=== PATIENT | female | born 1985 | race Caucasian/White ===

== ENCOUNTER 2016-03-28 12:40 | Emergency (ER) | payer OTHER ==
[~2016-03-28] VITALS: Ht 180.3 cm; Wt 89.5 kg
[2016-03-28 13:01] VITALS: BP 119/71
[2016-03-28 13:42] LABS: Basophils # (auto) 0 uL; Basophils % (auto) 0.5 % (0.0-2.0); Eosinophils # (auto) 0.2 uL; Eosinophils % (auto) 2.1 % (0.0-7.0); Hematocrit 40.7 % (36.0-46.0); Hemoglobin 13.5 g/dL (12.2-16.2); Lymphocytes # (auto) 1.8 uL; Lymphocytes % (auto) 17.1 % (10.0-50.0); Mean Corpuscular Hemoglobin 29.6 pg (28.0-32.0); Mean Corpuscular Hgb Conc. 33.1 g/dL (32.0-36.0); Mean Corpuscular Volume 89.3 fL (80.0-100.0); Mean Platelet Volume 7.5 fL (7.4-10.4); Monocytes # (auto) 0.6 uL; Monocytes % (auto) 5.7 % (0.0-12.0); Neutrophils # (auto) 7.6 uL; Neutrophils % (auto) 74.6 % (37.0-80.0); Platelet Count (auto) 273 10^3/uL (140-450); Red Cell Distribution Width 12.7 % (11.6-16.0); White Blood Cell 10.2 10^3/uL (4.4-10.8)
[2016-03-28 14:03] LABS: Albumin 4.2 g/dL (3.4-5.0); BUN/Creatinine Ratio 14.4; Bilirubin, Total 0.9 mg/dL (0.2-1.0); Calcium 9.4 mg/dL (8.5-10.1); Magnesium 2.3 mg/dL (1.6-2.6); Total Protein 7.7 g/dL (6.4-8.2)
== END 2016-03-28 21:30 | disposition left against medical advice (07) ==
LOC: ER 12:49
DX: R07.89 Other chest pain (principal); Z53.21 Procedure and treatment not carried out due to patient leaving prior to being seen by health care provider
CPT/HCPCS: 36415; 71020; 80053; 83735; 84484; 85025; 85049; 93005

== ENCOUNTER 2017-08-29 04:41 | Emergency (ER) | payer OTHER ==
[~2017-08-29] VITALS: Ht 180.3 cm; Wt 77.1 kg
[2017-08-29 08:41] LABS: Basophils # (auto) 0 uL; Basophils % (auto) 0.5 % (0.0-2.0); Eosinophils # (auto) 0.1 uL; Eosinophils % (auto) 1.7 % (0.0-7.0); Hematocrit 44.4 % (36.0-46.0); Hemoglobin 14.9 g/dL (12.2-16.2); Lymphocytes # (auto) 2.1 uL; Lymphocytes % (auto) 27.5 % (10.0-50.0); Mean Corpuscular Hemoglobin 30.5 pg (28.0-32.0); Mean Corpuscular Hgb Conc. 33.5 g/dL (32.0-36.0); Monocytes # (auto) 0.6 uL; Monocytes % (auto) 8.1 % (0.0-12.0); Neutrophils # (auto) 4.8 uL; Neutrophils % (auto) 62.2 % (37.0-80.0); Platelet Count (auto) 248 10^3/uL (140-450); Red Blood Cells 4.88 10^6/uL (4.0-5.20); Red Cell Distribution Width 12.8 % (11.8-14.3); White Blood Cell 7.7 10^3/uL (4.4-10.8)
[2017-08-29 08:48] LABS: Potassium 4.3 mmol/L (3.5-5.1)
[2017-08-29 08:53] LABS: Albumin 4.5 g/dL (3.4-5.0); BUN/Creatinine Ratio 12.7; Calcium 8.9 mg/dL (8.5-10.1)
[2017-08-29 09:05] LABS: Bilirubin, Total 0.9 mg/dL (0.2-1.0); Total Protein 8.6 g/dL (6.4-8.2)
[2017-08-29 09:27] VITALS: BP 142/78
== END 2017-08-29 09:36 | disposition home or self-care (01) ==
LOC: EDBD 04:41 → ER 04:41
DX: S16.1XXA Strain of muscle, fascia and tendon at neck level, initial encounter (principal); S09.90XA Unspecified injury of head, initial encounter; F17.210 Nicotine dependence, cigarettes, uncomplicated; F12.10 Cannabis abuse, uncomplicated; W01.0XXA Fall on same level from slipping, tripping and stumbling without subsequent striking against object, initial encounter; Y93.89 Activity, other specified; Y99.8 Other external cause status; Y92.89 Other specified places as the place of occurrence of the external cause
CPT/HCPCS: 36415; 70450; 70486; 72125; 80053; 80320; 85025

== ENCOUNTER 2020-08-09 11:17 | Emergency (ER) | payer OTHER ==
[~2020-08-09] VITALS: Ht 180.3 cm; Wt 99.8 kg
[2020-08-09 13:45] VITALS: BP 125/73
== END 2020-08-09 14:25 | disposition home or self-care (01) ==
LOC: ER 11:17
DX: S62.614A Displaced fracture of proximal phalanx of right ring finger, initial encounter for closed fracture (principal); S62.646A Nondisplaced fracture of proximal phalanx of right little finger, initial encounter for closed fracture; F17.210 Nicotine dependence, cigarettes, uncomplicated; X50.1XXA Overexertion from prolonged static or awkward postures, initial encounter; Y93.89 Activity, other specified; Y92.89 Other specified places as the place of occurrence of the external cause; Y99.8 Other external cause status
CPT/HCPCS: 29125; 73130

== ENCOUNTER 2021-10-10 15:09 | Emergency (ER) | payer MEDICAID, OTHER ==
[~2021-10-10] VITALS: Ht 180.3 cm; Wt 105.0 kg
[2021-10-10 16:46] LABS: Urine Bacteria FEW /hpf (None Seen); Urine Blood 1+ /uL (Negative); Urine Mucus FEW (None Seen); Urine Specific Gravity 1.035 (1.001-1.035); Urine WBC 18 /hpf (0 - 5)
[2021-10-10 16:54] LABS: Albumin 4.3 g/dL (3.4-5.0); Calcium 9.6 mg/dL (8.5-10.1)
[2021-10-10 16:57] LABS: BUN/Creatinine Ratio 7.5; Bilirubin, Total 1.6 mg/dL (0.2-1.0); Total Protein 8.3 g/dL (6.4-8.2)
[2021-10-10 17:02] LABS: Basophils # (auto) 0.1 10 ^3/uL (0-0.2); Basophils % (auto) 0.5 % (0.0-2.0); Eosinophils # (auto) 0 10 ^3/uL (0-0.8); Hematocrit 44.6 % (36.0-46.0); Hemoglobin 14.3 g/dL (12.2-16.2); Lymphocytes # (auto) 1.5 10 ^3/uL (0.4-5.4); Lymphocytes % (auto) 8.3 % (10.0-50.0); Mean Corpuscular Hemoglobin 29.3 pg (28.0-32.0); Mean Corpuscular Hgb Conc. 32.1 g/dL (32.0-36.0); Mean Corpuscular Volume 91.4 fL (80.0-100.0); Monocytes # (auto) 1.4 10 ^3/uL (0-1.3); Monocytes % (auto) 8.2 % (0.0-12.0); Neutrophils # (auto) 14.6 10 ^3/uL (1.6-8.6); Red Blood Cells 4.88 10^6/uL (4.0-5.20); Red Cell Distribution Width 13.5 % (11.8-14.3); White Blood Cell 17.6 10^3/uL (4.4-10.8)
[2021-10-10 17:07] LABS: Potassium 2.7 mmol/L (3.5-5.1)
[2021-10-10] MEDS ORDERED: ACETAMINOPHEN 325 MG TAB PO ONE (17:15)
[2021-10-10] MEDS ORDERED: ONDANSETRON HCL 4 MG/2 ML VIAL IV ONE ×2 (17:15→18:45)
[2021-10-10] MEDS ORDERED: LOPERAMIDE HCL 2 MG CAP/TAB PO ONE (17:45)
[2021-10-10] MEDS ORDERED: SODIUM CHLORIDE 0.9% 1,000 ML IV ONE (17:45)
[2021-10-10] MEDS ORDERED: POTASSIUM CHL 20 Meq TABLET PO ONE (18:30)
[2021-10-10] MEDS ORDERED: POTASSIUM CHL 20MEQ/100ML 100 ML IV ONE (18:45)
[2021-10-10] MEDS ORDERED: ONDA-144 PO (20:16)
[2021-10-10 22:03] VITALS: BP 114/80
== END 2021-10-10 22:05 | disposition home or self-care (01) ==
LOC: ER 15:09
DX: R11.2 Nausea with vomiting, unspecified (principal); R19.7 Diarrhea, unspecified; F17.210 Nicotine dependence, cigarettes, uncomplicated; R10.2 Pelvic and perineal pain; Z20.822 Contact with and (suspected) exposure to COVID-19
CPT/HCPCS: 36415; 71045; 80053; 81001; 84443; 84484; 84702; 85025; 87426; 93005; 96361; 96374; 96376; 99285; J2405; J3480; J7030

== ENCOUNTER 2021-10-12 08:19 | Inpatient (IN) | payer MEDICAID ==
[~2021-10-12] VITALS: Ht 180.3 cm; Wt 102.7 kg
[~2021-10-12 08:19] MED LIST: ONDA-144 PO
[2021-10-12] MEDS ORDERED: cefTRIAXone 1GM/50ML D5W 50 ML IV ONE (08:45)
[2021-10-12 09:37] LABS: Basophils # (auto) 0.1 10 ^3/uL (0-0.2); Basophils % (auto) 0.6 % (0.0-2.0); Eosinophils # (auto) 0 10 ^3/uL (0-0.8); Eosinophils % (auto) 0.1 % (0.0-7.0); Hematocrit 44.3 % (36.0-46.0); Hemoglobin 14.8 g/dL (12.2-16.2); Lymphocytes # (auto) 2.1 10 ^3/uL (0.4-5.4); Lymphocytes % (auto) 15.7 % (10.0-50.0); Mean Corpuscular Hemoglobin 30.1 pg (28.0-32.0); Mean Corpuscular Hgb Conc. 33.3 g/dL (32.0-36.0); Mean Corpuscular Volume 90.4 fL (80.0-100.0); Monocytes # (auto) 1.2 10 ^3/uL (0-1.3); Monocytes % (auto) 8.7 % (0.0-12.0); Neutrophils # (auto) 10.2 10 ^3/uL (1.6-8.6); Neutrophils % (auto) 74.9 % (37.0-80.0); Nucleated Red Blood Cells % 0.1 %; Red Cell Distribution Width 13.4 % (11.8-14.3); White Blood Cell 13.6 10^3/uL (4.4-10.8)
[2021-10-12 09:48] LABS: Albumin 4.4 g/dL (3.4-5.0); Calcium 9.6 mg/dL (8.5-10.1)
[2021-10-12 09:51] LABS: BUN/Creatinine Ratio 9.6; Bilirubin, Total 1.7 mg/dL (0.2-1.0); Total Protein 8.6 g/dL (6.4-8.2)
[2021-10-12 09:53] LABS: Potassium 2.8 mmol/L (3.5-5.1)
[2021-10-12] MEDS ORDERED: SODIUM CHLORIDE 0.9% 1,000 ML IV ONE ×2 (10:00)
[2021-10-12] MEDS ORDERED: ONDANSETRON HCL 4 MG/2 ML VIAL IV ONE (10:45)
[2021-10-12] MEDS: POTASSIUM CHL 20MEQ/100ML 100 ML IV SCH ×2 (14:16→15:52)
[2021-10-12] MEDS ORDERED: ONDANSETRON HCL 4 MG/2 ML VIAL ONE (15:14)
[2021-10-12] MEDS: ONDANSETRON HCL 4 MG/2 ML VIAL IV PRN (15:23)
[2021-10-12] MEDS ORDERED: PANTOPRAZOLE 40 MG/10 ML VIAL INJ IV ONE ×2 (16:00→16:30)
[2021-10-12] MEDS ORDERED: ONDANSETRON HCL 4 MG/2 ML VIAL IV PRN (16:00)
[2021-10-12] MEDS: SODIUM CHLORIDE 0.9% 1,000 ML IV SCH ×2 (16:32→23:41)
[2021-10-12 22:00] VITALS: BP 145/82
[2021-10-12 23:17] LABS: BUN/Creatinine Ratio 11.6; Calcium 8.2 mg/dL (8.5-10.1)
[2021-10-12 23:21] LABS: Potassium 2.9 mmol/L (3.5-5.1)
[2021-10-13 05:46] VITALS: BP 130/84
[2021-10-13 05:48] LABS: Basophils # (auto) 0.1 10 ^3/uL (0-0.2); Basophils % (auto) 0.7 % (0.0-2.0); Eosinophils # (auto) 0.1 10 ^3/uL (0-0.8); Eosinophils % (auto) 1.2 % (0.0-7.0); Hematocrit 37.7 % (36.0-46.0); Hemoglobin 12.4 g/dL (12.2-16.2); Lymphocytes # (auto) 2.2 10 ^3/uL (0.4-5.4); Lymphocytes % (auto) 23.2 % (10.0-50.0); Mean Corpuscular Hemoglobin 29.7 pg (28.0-32.0); Mean Corpuscular Hgb Conc. 32.9 g/dL (32.0-36.0); Mean Corpuscular Volume 90.1 fL (80.0-100.0); Monocytes # (auto) 0.9 10 ^3/uL (0-1.3); Monocytes % (auto) 9.3 % (0.0-12.0); Neutrophils # (auto) 6.2 10 ^3/uL (1.6-8.6); Neutrophils % (auto) 65.6 % (37.0-80.0); Red Blood Cells 4.19 10^6/uL (4.0-5.20); Red Cell Distribution Width 13.3 % (11.8-14.3); White Blood Cell 9.4 10^3/uL (4.4-10.8)
[2021-10-13 06:05] LABS: BUN/Creatinine Ratio 11.1
[2021-10-13 06:06] LABS: Albumin 3.3 g/dL (3.4-5.0)
[2021-10-13 06:08] LABS: Bilirubin, Total 1.4 mg/dL (0.2-1.0); Total Protein 6.4 g/dL (6.4-8.2)
[2021-10-13] MEDS: SODIUM CHLORIDE 0.9% 1,000 ML IV SCH ×2 (06:27→13:08)
[2021-10-13] MEDS ORDERED: SODIUM CHLORIDE LOCK 10 ML ONE (08:51)
[2021-10-13] MEDS ORDERED: LIDOCAINE VISCOUS 2% 15ML UD ONE (08:51)
[2021-10-13] MEDS ORDERED: diphenhdrAMINE HCL 50 MG/1 ML VL ONE (08:52)
[2021-10-13] MEDS: cefTRIAXone 1GM/50ML D5W 50 ML IV SCH (08:59)
[2021-10-13] MEDS: ENOXAPARIN SOD 40 MG/0.4 ML SYRINGE SC SCH (08:59)
[2021-10-13] MEDS: PANTOPRAZOLE 40 MG/10 ML VIAL INJ IV SCH (08:59)
[2021-10-13 09:00] VITALS: BP 151/92
[2021-10-13 10:01] LABS: Hepatitis B Surface Antibody Negative (Negative)
[2021-10-13 10:35] LABS: Hepatitis A Total Antibody Positive (Negative)
[2021-10-13 10:36] LABS: INR 1.02 (0.9-1.15)
[2021-10-13 13:00] VITALS: BP 147/89
[2021-10-13 13:08] LABS: Hepatitis A Ab IgM Negative; Hepatitis B Core IgM Negative
[2021-10-13 13:09] LABS: Hepatitis C Antibody Negative (Negative)
[2021-10-13] MEDS: MIDAZOLAM HCL 5 MG/ML-1ML VIAL ONE ×3 (15:26→15:32)
[2021-10-13] MEDS: fentaNYL CITRATE 100 MCG/2 ML VL ONE ×2 (15:26→15:29)
[2021-10-13 17:00] VITALS: BP 142/67
[2021-10-13] MEDS: SUCRALFATE 1 GM/10 ML ORAL SUSP PO SCH ×2 (17:38→21:15)
[2021-10-13] MEDS: POTASSIUM EFFERVESENT TAB 25 MEQ PO SCH (21:15)
[2021-10-13] MEDS: MAGNESIUM OXIDE 400 MG TAB PO SCH (21:15)
[2021-10-13 22:00] VITALS: BP 123/72
[2021-10-13] MEDS: ONDANSETRON HCL 4 MG/2 ML VIAL IV PRN (22:28)
[2021-10-14 05:48] VITALS: BP 122/68
[2021-10-14] MEDS: SUCRALFATE 1 GM/10 ML ORAL SUSP PO SCH ×4 (06:06→22:04)
[2021-10-14] MEDS: ONDANSETRON HCL 4 MG/2 ML VIAL IV PRN (06:06)
[2021-10-14] MEDS ORDERED: OXCA150T61 PO (07:18)
[2021-10-14] MEDS ORDERED: CLON0.2T PO (07:18)
[2021-10-14] MEDS ORDERED: ARIP10TA29 PO (07:18)
[2021-10-14] MEDS ORDERED: FLUO20CA90 PO (07:18)
[2021-10-14] MEDS ORDERED: HYDR50CA2 PO (07:18)
[2021-10-14] MEDS ORDERED: PANT40TA2 PO ×2 (07:20→10:22)
[2021-10-14] MEDS ORDERED: SUCR1TAB22 PO ×2 (07:20→10:22)
[2021-10-14] MEDS: MAGNESIUM OXIDE 400 MG TAB PO SCH (08:56)
[2021-10-14] MEDS: POTASSIUM EFFERVESENT TAB 25 MEQ PO SCH (08:56)
[2021-10-14 09:00] VITALS: BP 112/54
[2021-10-14] MEDS: ENOXAPARIN SOD 40 MG/0.4 ML SYRINGE SC SCH (09:05)
[2021-10-14] MEDS: cefTRIAXone 1GM/50ML D5W 50 ML IV SCH (09:05)
[2021-10-14] MEDS: PANTOPRAZOLE 40 MG/10 ML VIAL INJ IV SCH ×2 (09:05→22:04)
[2021-10-14] MEDS ORDERED: POTASSIUM CHL 20MEQ/100ML 100 ML IV ONE (10:00)
[2021-10-14] MEDS: METOCLOPRAMIDE HCL 5MG/ml INJ 2ml VIAL IV SCH ×3 (11:26→23:51)
[2021-10-14 13:00] VITALS: BP 132/79
[2021-10-14 16:34] VITALS: BP 144/92
[2021-10-14 21:29] LABS: Urine Bacteria NONE SEEN /hpf (None Seen); Urine Blood Negative /uL (Negative); Urine Specific Gravity 1.002 (1.001-1.035); Urine WBC <1 /hpf (0 - 5)
[2021-10-14 21:46] LABS: Alcohol, Urine < 3.0 mg/dL (0-10); Amphetamine Screen, Urine NEGATIVE (NEGATIVE); Barbiturate Scree,Urine NEGATIVE (NEGATIVE); Benzodiazephine Screen, Urine POSITIVE (NEGATIVE); Cannabinoid Screen, Urine POSITIVE (NEGATIVE); Cocaine Screen, Urine NEGATIVE (NEGATIVE); Opiate Scree,Urine NEGATIVE (NEGATIVE); Phencyclidine Screen, Urine NEGATIVE (NEGATIVE)
[2021-10-14 21:52] VITALS: BP 137/91
[2021-10-15 05:00] VITALS: BP 134/74
[2021-10-15] MEDS: SUCRALFATE 1 GM/10 ML ORAL SUSP PO SCH ×3 (06:13→17:00)
[2021-10-15] MEDS: METOCLOPRAMIDE HCL 5MG/ml INJ 2ml VIAL IV SCH ×2 (06:13→11:30)
[2021-10-15 06:22] LABS: Magnesium 2.8 mg/dL (1.6-2.6); Potassium 3.7 mmol/L (3.5-5.1)
[2021-10-15 06:23] LABS: BUN/Creatinine Ratio 6.7
[2021-10-15 09:00] VITALS: BP 148/84
[2021-10-15] MEDS: PANTOPRAZOLE 40 MG/10 ML VIAL INJ IV SCH (09:58)
[2021-10-15] MEDS: ENOXAPARIN SOD 40 MG/0.4 ML SYRINGE SC SCH (09:58)
[2021-10-15 13:00] VITALS: BP_SYST 134; BP_SYST 141; BP_DIAS 74; BP_DIAS 94
[2021-10-15 16:39] VITALS: BP 141/94
== END 2021-10-15 17:35 | disposition home or self-care (01) | DRG 241 ==
LOC: ER 08:19 → EDBD 08:19 → OVERFLOW 15:58 → WEST WING 23:31
PROVIDERS: ADMIT Registered Nurse; ATTEND Hospitalist
PROC: 0DB68ZX Excision of Stomach, Via Natural or Artificial Opening Endoscopic, Diagnostic (ICD-10-PCS; 2021-10-13)
PROC: 0DB58ZX Excision of Esophagus, Via Natural or Artificial Opening Endoscopic, Diagnostic (ICD-10-PCS; 2021-10-13)
PROC: 0DB98ZX Excision of Duodenum, Via Natural or Artificial Opening Endoscopic, Diagnostic (ICD-10-PCS; principal; 2021-10-13 15:23)
DX: K29.70 Gastritis, unspecified, without bleeding (principal); K76.0 Fatty (change of) liver, not elsewhere classified; K22.10 Ulcer of esophagus without bleeding; K25.9 Gastric ulcer, unspecified as acute or chronic, without hemorrhage or perforation; K29.90 Gastroduodenitis, unspecified, without bleeding; E66.01 Morbid (severe) obesity due to excess calories; E87.6 Hypokalemia; K44.9 Diaphragmatic hernia without obstruction or gangrene; Z20.822 Contact with and (suspected) exposure to COVID-19; F17.210 Nicotine dependence, cigarettes, uncomplicated; N20.0 Calculus of kidney; K21.00 Gastro-esophageal reflux disease with esophagitis, without bleeding; Z68.31 Body mass index [BMI] 31.0-31.9, adult
CPT/HCPCS: 36415; 43239; 74176; 76705; 76830; 76856; 80048; 80053; 80074; 80307; 81001; 83605; 83735; 84702; 85025; 85610; 86038; 86704; 86706; 86708; 86803; 86850; 86900; 86901; 87040; 87086; 87340; 93005; C9113; G0378; J0696; J2250; J2405; J3480

== ENCOUNTER 2022-05-01 15:28 | Emergency (ER) | payer MEDICAID ==
[~2022-05-01] VITALS: Ht 154.9 cm; Wt 60.4 kg
[~2022-05-01 15:28] MED LIST changes: +ARIP10TA29 PO; +CLON0.2T PO; +FLUO20CA90 PO; +HYDR50CA2 PO; +OXCA150T61 PO; +PANT40TA2 PO; +SUCR1TAB22 PO
[2022-05-01] MEDS ORDERED: SODIUM CHLORIDE 0.9% 1,000 ML IVB ONE (15:45)
[2022-05-01] MEDS ORDERED: PANTOPRAZOLE 40 MG/10 ML VIAL INJ IV ONE (15:45)
[2022-05-01] MEDS ORDERED: PROCHLORPERAZINE EDISYLATE 5 MG/ML 2ML VIAL IV ONE (15:45)
[2022-05-01 15:58] LABS: Basophils # (auto) 0 10 ^3/uL (0-0.2); Basophils % (auto) 0.3 % (0.0-2.0); Eosinophils # (auto) 0 10 ^3/uL (0-0.8); Eosinophils % (auto) 0.1 % (0.0-7.0); Hematocrit 40.1 % (36.0-46.0); Hemoglobin 13.8 g/dL (12.2-16.2); Lymphocytes # (auto) 1.3 10 ^3/uL (0.4-5.4); Lymphocytes % (auto) 9.2 % (10.0-50.0); Mean Corpuscular Hemoglobin 30.2 pg (28.0-32.0); Mean Corpuscular Hgb Conc. 34.5 g/dL (32.0-36.0); Mean Corpuscular Volume 87.6 fL (80.0-100.0); Monocytes # (auto) 0.5 10 ^3/uL (0-1.3); Monocytes % (auto) 3.9 % (0.0-12.0); Neutrophils % (auto) 86.5 % (37.0-80.0); Red Blood Cells 4.58 10^6/uL (4.0-5.20); Red Cell Distribution Width 14.4 % (11.8-14.3); White Blood Cell 13.8 10^3/uL (4.4-10.8)
[2022-05-01 16:13] LABS: Albumin 4.4 g/dL (3.4-5.0); Calcium 9.7 mg/dL (8.5-10.1); Potassium 3.2 mmol/L (3.5-5.1)
[2022-05-01 16:16] LABS: BUN/Creatinine Ratio 9.1; Bilirubin, Total 1.8 mg/dL (0.2-1.0); Total Protein 8.3 g/dL (6.4-8.2)
[2022-05-01] MEDS ORDERED: ONDA-144 PO (18:26)
[2022-05-01 18:49] LABS: Urine Bacteria NONE SEEN /hpf (None Seen); Urine Blood Negative /uL (Negative); Urine Mucus FEW (None Seen); Urine Specific Gravity 1.029 (1.001-1.035); Urine WBC 7 /hpf (0 - 5)
[2022-05-01 19:52] VITALS: BP 150/54
[2022-05-01] MEDS ORDERED: POTASSIUM EFFERVESENT TAB 25 MEQ PO ONE (20:00)
== END 2022-05-01 21:44 | disposition home or self-care (01) ==
LOC: EDBD 15:28 → ER 15:28
DX: R11.2 Nausea with vomiting, unspecified (principal); R19.7 Diarrhea, unspecified; F41.9 Anxiety disorder, unspecified; F32.9 Major depressive disorder, single episode, unspecified; F17.210 Nicotine dependence, cigarettes, uncomplicated; F12.90 Cannabis use, unspecified, uncomplicated; Z98.890 Other specified postprocedural states; Z79.899 Other long term (current) drug therapy
CPT/HCPCS: 36415; 76705; 80053; 81001; 83690; 85025; 96361; 96374; 96375; 99285; C9113; J0780; J7030